=== PATIENT | male | born 1980 | race Caucasian/White ===

== ENCOUNTER 2025-05-21 18:31 | Emergency (ER) | payer SELFPAY ==
[~2025-05-21] VITALS: Ht 182.9 cm; Wt 104.3 kg
[2025-05-21 18:39] VITALS: TEMP 98.7
[2025-05-21 18:57] LABS: BASOPHILS % 1.3 % (0.0-1.0); EOSINOPHILS % 1.1 % (0.0-6.0); LYMPHOCYTES % 15.8 % (18.0-39.1); MONOCYTES % 11.9 % (4.4-11.3); NEUTROPHILS % 69.7 % (38.7-80.0); RED CELL DISTRIBUTION WIDTH 14.8 % (11.7-14.4)
[2025-05-21 19:18] LABS: INR 0.9
[2025-05-21 19:19] LABS: EST GLOMERULAR FILTRATION RATE 105.0 ML/MIN (>=60)
[2025-05-21] MEDS ORDERED: IOPAMIDOL 370 MG/ML 100 ML INFUS..BTL INJ ONE (19:42)
[2025-05-21 21:06] VITALS: PULSE 85; RESP 18
[2025-05-21] MEDS ORDERED: PANTOPRAZOLE SO40 MG PO (21:49)
[2025-05-21 21:53] VITALS: BP 132/96; PULSE 86; RESP 16; TEMP 98.1; O2SAT 98
== END 2025-05-21 21:57 | disposition home or self-care (01) ==
LOC: ER 18:45
DX: K29.20 Alcoholic gastritis without bleeding (principal); K21.9 Gastro-esophageal reflux disease without esophagitis; R07.89 Other chest pain; R06.02 Shortness of breath; R11.0 Nausea; F10.90 Alcohol use, unspecified, uncomplicated; K76.0 Fatty (change of) liver, not elsewhere classified
CPT/HCPCS: 36415; 71045; 71260; 80053; 83690; 84484; 85025; 85379; 85610; 85730; 93005; 99284; J2470; Q9967